=== PATIENT | male | born 1995 | race African-American/Black ===

== ENCOUNTER 2019-04-19 16:52 | Emergency (ER) | payer OTHER ==
[~2019-04-19] VITALS: Ht 177.8 cm; Wt 102.1 kg
--- OUTSIDE RECORDS SUMMARY | 2019-04-19 16:54 | XMS REPORT | Encounter Summary ---
Author Organization Unknown Address [address] [place] [address] Phone [phone] Reason for Visit Annual physical - male Instructions 1. Adult health examination CBC w/ auto diff CMP, serum or plasma HbA1c (hemoglobin A1c), blood CBC w/ auto diff TSH, serum or plasma urinalysis, dipstick vitamin D, 25-hydroxy, total, serum 2. Depression screening learning about depression 3. Body mass index 30+ - obesity body mass index: care instructions learning about healthy weight 4. Obesity 5. Exposure to sexually transmissible disorder unlisted lab - HIV-1/2 Ag and abs screen, 4TH gen. w/rflx (55757) RPR (rapid plasma reagin), quantitative, serum CT + NG RNA, urine 6. Essential hypertension Discussion Note: None recorded. Plan of Care Reminders Provider Appointments None recorded. Lab CBC W/ Auto Diff 03/22/2019 [facility] CMP, Serum or Plasma 03/22/2019 [facility] HbA1C (Hemoglobin a1C), Blood 03/22/2019 [facility] CBC W/ Auto Diff 03/22/2019 [facility] TSH, Serum or Plasma 03/22/2019 [facility] Urinalysis, Dipstick 03/22/2019 [facility] Unlisted Lab 03/22/2019 [facility] RPR (Rapid Plasma Reagin), Quantitative, Serum 03/22/[address] [facility] [address] + NG RNA, Urine 03/22/2019 [facility] Vitamin D, 25-Hydroxy, Total, Serum 03/22/2019 [facility] Referral None recorded. Procedures None recorded. Surgeries None recorded. Imaging None recorded. Medications No Medications Reported Medications Administered None recorded. Vitals Height Weight BMI Blood Pressure 5 ft 10 in 226 lbs 32.4 kg/m2 138/72 mm[Hg] Lab Results None recorded. Allergies Code Code System Name Reaction Severity Status Onset 5933 RxNorm Iodine Anaphylaxis Severe Active Penicillins Hives Moderate to Severe Active Problems Name Status Onset Date Source Essential Hypertension Active 08/24/2017 Procedures None recorded. Vaccine List None recorded. Social History Smoking Status Never Smoker Past Encounters 03/22/2019 Adult Health Examination; Depression Screening; Body Mass Index 30+ - Obesity; Obesity; Exposure to Sexually Transmissible Disorder; Essential Hypertension Nba Joseph Jr, MD: [id number] [facility], [address], [place] [address], Ph. History of Present Illness Hypertension Reported By: Patient HPI: Severity: mild. Onset/Timing: gradual onset. Alleviating Factors: relieved with rest, medication. Self Care: not under emotional stress, blood pressure goal: 120/80. Associated Symptoms: no shortness of breath, no fatigue, no decline in exercise capacity Generic HPI Template Reported By: Patient Notes: Patient presents for routine physical examination. Currently without new complaint. Review of Systems Comprehensive General Adult ROS Reported By: Patient Constitutional: Constitutional: no fever, no night sweats, no exercise intolerance Eyes: Eyes: no vision change ENMT: Ears: no difficulty hearing. Nose: no nose problems. Mouth/Throat: no sore throat, no oral abnormalities Cardiovascular: Cardiovascular: no chest pain, no shortness of breath when walking, no shortness of breath when lying down, no lightheadedness Respiratory: Respiratory: no cough, no wheezing, no shortness of breath Gastrointestinal: Gastrointestinal: no abdominal pain, no nausea, no vomiting, no diarrhea Genitourinary: Genitourinary: no incontinence, no difficulty urinating, no increased frequency Musculoskeletal: Musculoskeletal: no muscle aches, no muscle weakness, no back pain Integumentary: Skin: no rashes, no laceration Neurologic: Neurologic: no weakness, no numbness, no dizziness, no headaches Psychiatric: Psych: no depression, no anxiety, no hallucinations, no suicidal thoughts Endocrine: Endocrine: no fatigue Hematologic/Lymphatic: Hematologic/Lymphatic no bruising, no excessive bleeding Allergic/Immunologic: Allergy/Immunologic: no runny nose, no sinus pressure, no frequent sneezing Physical Exam General Adult Exam (male) Reported By: Patient Constitutional: General Appearance: healthy-appearing, well-nourished, well-developed. Level of Distress: NAD. Ambulation: ambulating normally Psychiatric: Insight: good judgement. Mental Status: active and alert, normal mood, normal affect. Orientation: to time, to place, to person. Memory: recent memory normal, remote memory normal Head: Head: normocephalic, atraumatic Eyes: Lids and Conjunctivae: non-injected. Pupils: PERRLA. Corneas: grossly intact. EOM: EOMI. Sclerae: non-icteric ENMT: Ears: no lesions on external ear, TMs clear. Nose: nares patent, no septal deviation, no sinus tenderness, no nasal discharge. Lips, Teeth, and Gums: no mouth or lip ulcers, normal dentition. Oropharynx: moist mucous membranes, no erythema, no exudates Neck: Neck: supple, trachea midline, no masses. Thyroid: no enlargement, non-tender Lungs: Auscultation: breath sounds normal, good air movement, no wheezing, no rales/crackles Cardiovascular: Heart Auscultation: RRR, normal S1, normal S2, no murmurs. Neck vessels: no carotid bruits. Pulses including femoral / pedal: normal throughout Abdomen: Bowel Sounds: normal. Inspection and Palpation: soft, non-distended, no tenderness, no guarding, no rebound tenderness. Liver: no hepatomegaly Rectal: Rectal Exam: patient exam Musculoskeletal:: Motor Strength and Tone: normal, normal tone. Joints, Bones, and Muscles: normal movement of all extremities, no bony abnormalities. Extremities: no cyanosis, no edema Neurologic: Gait and Station: normal gait, normal station. Cranial Nerves: grossly intact. Sensation: grossly intact. Reflexes: DTRs 2+ bilaterally throughout Skin: Inspection and palpation: no rash, no lesions
--- OUTSIDE RECORDS SUMMARY | 2019-04-19 16:54 | XMS REPORT | Clinical Summary ---
Author Author [facility] Organization [facility] Address Unknown Phone Unavailable Care Team Providers Care Fpga Engineer Name Role Phone Asked, No Pcp PCP Unavailable Allergies Comments Active Allergy Reactions Severity Noted Date Iodine And Iodide Anaphylaxis High 02/18/2017 Containing Products Penicillins Hives 02/18/2017 Medications End Date Status Medication Sig Dispensed Refills Start Date Active valsartan (DIOVAN) 160 MG Take 160 mg 0 tablet by mouth daily. Active hydroCHLOROthiazide Take 12.5 mg 0 (MICROZIDE) 12.5 mg by mouth capsule daily. 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 Family History Medical History Relation Name Comments Hypertension Father COPD Maternal Grandfather Diabetes Maternal Grandfather Miscarriages / Maternal Stillbirths Grandfather Diabetes Maternal Grandmother Kidney disease Maternal Grandmother Miscarriages / Maternal Stillbirths Grandmother Asthma Mother Depression Mother defects Sister Relation Name Status Comments Father Maternal Grandfather Maternal Grandmother Mother Sister Social History Date Tobacco Use Types Packs/Day Years Used Never Smoker Alcohol Use Drinks/Week oz/Week Comments No Sex Assigned at Date Recorded Not on file Industry Job Start Date Occupation Not on file Not on file Not on file Travel End Travel History Travel Start No recent travel history available. Last Filed Vital Signs Not on file Plan of Treatment Health Maintenance Due Date Last Done Comments INFLUENZA VACCINE 04/12/2019 Results Not on fileafter 04/18/2018 Insurance Type Payer Benefit Subscriber ID Effective Phone Address Plan / Dates Group HMO CIG[employer] CIGNA OPEN xxxxxxxxxxx 2013-P ACCESS/NET resent WORK Advance Directives Patient has advance care planning documents on file. For more information, kvng e contact: Glen Solorzano [address] [place] [address]
[2019-04-19] MEDS ORDERED: ONDANSETRON HCL INJ 2MG/ML 2ML 2 MG/ML VIAL IV ONE (18:03)
[2019-04-19] MEDS ORDERED: SODIUM CHLORIDE 0.9% 1000ML 1,000 ML IV STA (18:03)
[2019-04-19] MEDS ORDERED: PANTOPRAZOLE 40 MG 10ML VIAL IV ONE (18:03)
[2019-04-19 18:10] LABS: BASOPHILS % 0.2 % (0.0-1.0); EOSINOPHILS % 0.4 % (0.0-6.0); HEMOGLOBIN 16.1 g/dL (14.0-18.0); LYMPHOCYTES # (AUTO) 1.2 (1.0-3.2); LYMPHOCYTES % 11.6 % (18.0-39.1); MEAN CORPUSCULAR HEMOGLOBIN 27.8 pg (28-32); MEAN CORPUSCULAR HGB CONC 33.5 g/dL (31-35); MEAN CORPUSCULAR VOLUME 82.9 fL (81-99); MONOCYTES # (AUTO) 0.5 (0.2-0.8); MONOCYTES % 4.6 % (4.4-11.3); NEUTROPHILS # (AUTO) 8.3 (2.1-6.9); NEUTROPHILS % 82.3 % (38.7-80.0); PLATELET COUNT 282 x10e3/uL (140-360); RED BLOOD COUNT 5.79 x10e6/uL (4.3-5.7); RED CELL DISTRIBUTION WIDTH 12.6 % (11.7-14.4)
[2019-04-19 18:23] LABS: ALANINE AMINOTRANSFERASE 21 IU/L (0-55); ALBUMIN 4.6 g/dL (3.5-5.0); ALBUMIN/GLOBULIN RATIO 1.5 (0.8-2.0); ALKALINE PHOSPHATASE 57 IU/L (40-150); AMYLASE 78 U/L (25-125); ANION GAP 14.1 mmol/L (8-16); BLOOD UREA NITROGEN 17 mg/dL (7-26); BUN/CREATININE RATIO 14 (6-25); CALCIUM 9.9 mg/dL (8.4-10.2); CARBON DIOXIDE 26 mmol/L (22-29); CHLORIDE 101 mmol/L (98-107); CREATININE, SERUM 1.21 mg/dL (0.72-1.25); EST GLOMERULAR FILTRATION RATE > 60 ML/MIN (60-); GLUCOSE 92 mg/dL (74-118); LIPASE 33 U/L (8-78); POTASSIUM 4.1 mmol/L (3.5-5.1); SODIUM 137 mmol/L (136-145)
--- NOTE | 2019-04-19 19:09 | NUR ---
Report to GORAN Bernstein
[2019-04-19 20:01] LABS: BILIRUBIN,URINE NEGATIVE (NEGATIVE); CLARITY,URINE SL CLOUDY (CLEAR); COLOR,URINE YELLOW (YELLOW); KETONES,URINE 1+ (NEGATIVE); LEUKOCYTE ESTERASE ,URINE NEGATIVE (NEGATIVE); NITRITE,URINE NEGATIVE (NEGATIVE); PROTEIN,URINE DIPSTICK NEGATIVE (NEGATIVE); URINE UROBILINOGEN 0.2 mg/dL (0.2 - 1)
[2019-04-19 20:14] LABS: BACTERIA,URINE RARE /HPF; MUCUS,URINE MANY (RARE)
[2019-04-19] MEDS ORDERED: ZOFRAN4 MG SL (20:38)
[2019-04-19 20:45] VITALS: BP 142/84
== END 2019-04-19 20:50 | disposition home or self-care (01) ==
LOC: ER 16:52
DX: R10.13 Epigastric pain (principal); R10.12 Left upper quadrant pain; R11.2 Nausea with vomiting, unspecified; R19.7 Diarrhea, unspecified
CPT/HCPCS: 36415; 80053; 81001; 82150; 83690; 85025; 96374; 99283; C9113; J2405; J7030